=== PATIENT | female | born 1985 | race Asian ===

== ENCOUNTER 2020-07-30 19:39 | Inpatient (IN) ==
[2020-07-30] MEDS ORDERED: Lactated Ringers 1000 ml BAG 1,000 ML IV SCH (21:00)
[2020-07-30] MEDS ORDERED: Lactated Ringers 1000 ml BAG 1,000 ML IV ONE (21:00)
[2020-07-30] MEDS ORDERED: Buffered Lidocaine 1% SYRIN 1 ml INTRADERM ONE (21:00)
[2020-07-30 21:46] LABS: Urine Benzodiazepine Screen None Detected (None Detect); Urine Cannabinoids Screen None Detected (None Detect); Urine Opiates Screen None Detected (None Detect)
[2020-07-31] MEDS ORDERED: Calcium Carb (TUMS) 500 mg CHEW TAB PO PRN (01:25)
[2020-07-31] MEDS ORDERED: Witch Hazel PAD JAR TOPICAL PRN (02:30)
[2020-07-31] MEDS ORDERED: Dibucaine 1% OINT 28.35 GM TUBE PR PRN (02:30)
[2020-07-31] MEDS ORDERED: Glycerin ADULT 2.4 gm SUPP PR PRN (02:30)
[2020-08-01 06:16] LABS: ABS Basophils 0.1 10^3/ul (0-0.2); ABS Eosinophils 0.2 10^3/ul (0-0.6); ABS Lymphocytes 2.4 10^3/ul (1.0-4.8); ABS Monocytes 0.7 10^3/ul (0-0.8); ABS Neutrophils 4.2 10^3/ul (1.5-7.7); Eosinophil % 2.4 %; Hematocrit 33 % (35-47); Hemoglobin 11.1 g/dL (12.0-16.0); Lymphocyte % 32.3 %; Mean Corpuscular HGB Conc 34 g/dL (31-36); Mean Corpuscular Hemoglobin 30 pg (27-31); Mean Corpuscular Volume 89 fL (80-97); Mean Platelet Volume 7.7 fL (7.4-10.4); Platelet Count 228 10^3/uL (150-450); Red Blood Count 3.72 10^6 /uL (3.70-4.87); Red Cell Distribution Width 18 % (10-15); White Blood Count 7.5 10^3/uL (3.5-10.8)
[2020-08-01 07:37] VITALS: BP 115/65
== END 2020-08-01 14:07 | disposition home or self-care (01) | DRG 560 ==
LOC: MCHOBOUT 19:39 → MCHOB 20:52
PROVIDERS: ADMIT Midwife; ATTEND Midwife

== ENCOUNTER 2023-11-04 02:26 | Inpatient (IN) ==
[2023-11-04] MEDS ORDERED: Lidocaine 1% VIAL 10 MG/ML 30 ML VIAL INJ PRN (04:51)
[2023-11-04 06:31] LABS: ABS Eosinophils 0.1 10^3/uL (0.0-0.5); ABS Lymphocytes 1.7 10^3/uL (1.0-4.8); ABS Monocytes 0.6 10^3/uL (0.0-0.9); ABS Neutrophils 3.2 10^3/uL (1.5-7.6); Eosinophil % 2.1 %; Hematocrit 29.9 % (35-45); Hemoglobin 10.2 g/dL (11.5-14.3); Mean Corpuscular Hemoglobin 26.6 pg (27-33); Mean Corpuscular Volume 78.4 fL (80-97); Mean Platelet Volume 7.6 fL (7.5-11.2); Nucleated Red Blood Cells % 0.1 %/100WBC (0.0-0.8); Platelet Count 263 10^3/uL (150-450); Red Blood Count 3.81 10^6/uL (3.63-4.92); Red Cell Distribution Width 15.4 % (12-17); White Blood Count 5.6 10^3/uL (3.8-11.8)
[2023-11-04] MEDS: Oxytocin in LR 20,000 MILLI.UNIT/1,000 ML BAG IV SCH (07:00)
[2023-11-04] MEDS: Lactated Ringers 1000 ml BAG 1,000 ML IV SCH (10:43)
[2023-11-04] MEDS: Lactated Ringers 1000 ml BAG 1,000 ML IV ONE (10:43)
[2023-11-04] MEDS: Oxytocin in LR 20,000 MILLI.UNIT/1,000 ML BAG IV ONE (10:43)
[2023-11-04] MEDS: Witch Hazel PAD JAR TOPICAL PRN (10:52)
[2023-11-04] MEDS: Dibucaine 1% OINT 28.35 GM TUBE PR PRN (10:52)
[2023-11-04 11:04] LABS: Urine Benzodiazepine Screen None Detected (None Detect); Urine Cannabinoids Screen None Detected (None Detect); Urine Opiates Screen None Detected (None Detect)
[2023-11-05 06:35] LABS: ABS Eosinophils 0.1 10^3/uL (0.0-0.5); ABS Lymphocytes 1.4 10^3/uL (1.0-4.8); ABS Monocytes 0.4 10^3/uL (0.0-0.9); ABS Neutrophils 4.3 10^3/uL (1.5-7.6); Eosinophil % 1.7 %; Hematocrit 29.8 % (35-45); Lymphocyte % 21.9 %; Mean Corpuscular Hemoglobin 26.6 pg (27-33); Mean Corpuscular Hgb Conc 33.6 g/dL (31-36); Mean Platelet Volume 7.3 fL (7.5-11.2); Nucleated Red Blood Cells % 0.1 %/100WBC (0.0-0.8); Platelet Count 244 10^3/uL (150-450); Red Blood Count 3.78 10^6/uL (3.63-4.92); White Blood Count 6.2 10^3/uL (3.8-11.8)
[2023-11-05 08:40] VITALS: BP 104/65
== END 2023-11-05 13:31 | disposition home or self-care (01) | DRG 560 ==
LOC: MCHOBOUT 02:26 → MCHOB 04:49